=== PATIENT | female | born 1980 | race Hispanic/Latino ===

== ENCOUNTER 2020-12-13 18:45 | Inpatient (IN) | payer BC, OTHER ==
[~2020-12-13] VITALS: Ht 142.2 cm; Wt 48.5 kg
[2020-12-13] MEDS ORDERED: ACETAMINOPHEN 325 MG TAB PO ONE (19:45)
[2020-12-13] MEDS ORDERED: CEFTRIAXONE 2 GM in SODIUM CHLORIDE 0.9% 100 ML IV ONE (19:45)
[2020-12-13 19:59] LABS: BASOPHILS % 0.2 % (0.0-1.0); HEMATOCRIT 38.5 % (34.2-44.1); HEMOGLOBIN 13.1 g/dL (12.0-16.0); LYMPHOCYTES # (AUTO) 0.6 (1.0-3.2); MEAN CORPUSCULAR HEMOGLOBIN 30.3 pg (28-32); MEAN CORPUSCULAR VOLUME 88.9 fL (81-99); MONOCYTES # (AUTO) 1.2 (0.2-0.8); MONOCYTES % 7.9 % (4.4-11.3); NEUTROPHILS # (AUTO) 13.6 (2.1-6.9); NEUTROPHILS % 87.6 % (38.7-80.0); PLATELET COUNT 335 x10e3/uL (140-360); RED BLOOD COUNT 4.33 x10e6/uL (3.6-5.1); RED CELL DISTRIBUTION WIDTH 12.8 % (11.7-14.4)
[2020-12-13] MEDS ORDERED: SODIUM CHLORIDE 0.9% 1000ML 1,000 ML IV ONE (20:00)
[2020-12-13 20:14] LABS: ANION GAP 16.3 mmol/L (8-16); CALCIUM 9.4 mg/dL (8.4-10.2); CREATININE, SERUM 0.73 mg/dL (0.57-1.11); POTASSIUM 3.3 mmol/L (3.5-5.1)
[2020-12-13 20:30] LABS: CLARITY,URINE SL CLOUDY (CLEAR); COLOR,URINE BROWN (YELLOW)
[2020-12-13 20:31] LABS: KETONES,URINE TRACE (NEGATIVE); LEUKOCYTE ESTERASE ,URINE LARGE (NEGATIVE); NITRITE,URINE POSITIVE (NEGATIVE); PROTEIN,URINE DIPSTICK >=300 (NEGATIVE); URINE UROBILINOGEN 1 mg/dL (0.2 - 1)
[2020-12-13] MEDS ORDERED: ONDANSETRON HCL INJ 2MG/ML 2ML 2 MG/ML VIAL IV STA (20:31)
[2020-12-13 20:39] LABS: BACTERIA,URINE MODERATE /HPF; WBC,URINE (MAN) >50 /HPF (0-5)
[2020-12-13] MEDS ORDERED: IBUPROFEN 600 MG TAB PO STA (21:30)
[2020-12-13] MEDS ORDERED: IBUPROFEN 600 MG TAB ONE (21:38)
[2020-12-13 22:18] LABS: AMYLASE 82 U/L (25-125); LIPASE 41 U/L (8-78)
[2020-12-13] MEDS ORDERED: ONDANSETRON HCL INJ 2MG/ML 2ML 2 MG/ML VIAL IV PRN (22:45)
[2020-12-13] MEDS ORDERED: IBUPROFEN 600 MG TAB PO PRN (22:45)
[2020-12-13] MEDS ORDERED: SODIUM CHLORIDE 0.9% INJ 10 ML VIAL INJ PRN (22:45)
[2020-12-13] MEDS: KCL 20MEQ/.9 SOD CHL 1,000 ML IV SCH (22:56)
[2020-12-13] MEDS ORDERED: IBUPROFEN 200 MG TAB PO STA (23:06)
[2020-12-13] MEDS ORDERED: IBUPROFEN 200 MG TAB ONE (23:15)
[2020-12-14] MEDS ORDERED: IBUPROFEN 800 MG/200 ML IV PRN (01:15)
[2020-12-14] MEDS ORDERED: IBUPROFEN 800MG/ 200ML 200 ML IV ONE (01:29)
[2020-12-14 01:38] LABS: AMPHETAMINES SCREEN,URINE NEGATIVE (NEGATIVE); BENZODIAZEPINES SCREEN,URINE NEGATIVE (NEGATIVE); PHENCYCLIDINE SCREEN,URINE NEGATIVE (NEGATIVE)
[2020-12-14 06:14] LABS: BASOPHILS % 0.3 % (0.0-1.0); EOSINOPHILS % 0.1 % (0.0-6.0); HEMATOCRIT 33.6 % (34.2-44.1); HEMOGLOBIN 11.1 g/dL (12.0-16.0); LYMPHOCYTES # (AUTO) 0.8 (1.0-3.2); LYMPHOCYTES % 7.8 % (18.0-39.1); MEAN CORPUSCULAR HEMOGLOBIN 30.8 pg (28-32); MEAN CORPUSCULAR VOLUME 93.3 fL (81-99); MONOCYTES # (AUTO) 1.4 (0.2-0.8); MONOCYTES % 13.4 % (4.4-11.3); NEUTROPHILS # (AUTO) 8.3 (2.1-6.9); NEUTROPHILS % 77.9 % (38.7-80.0); PLATELET COUNT 265 x10e3/uL (140-360)
[2020-12-14] MEDS: KCL 20MEQ/.9 SOD CHL 1,000 ML IV SCH ×4 (06:18→22:45)
[2020-12-14 06:27] LABS: ANION GAP 13.1 mmol/L (8-16); CALCIUM 8.1 mg/dL (8.4-10.2); CREATININE, SERUM 0.57 mg/dL (0.57-1.11); POTASSIUM 3.1 mmol/L (3.5-5.1)
[2020-12-14] MEDS ORDERED: CEFTRIAXONE 2 GM in SODIUM CHLORIDE 0.9% 100 ML IV SCH (09:00)
[2020-12-14] MEDS ORDERED: LOSARTAN POTASS25 MG PO (12:45)
[2020-12-14] MEDS ORDERED: NEURONTIN300 MG PO (12:45)
[2020-12-14 13:37] VITALS: BP 159/98
[2020-12-14] MEDS ORDERED: POTASSIUM CHLORIDE 20 MEQ TAB CR PO NR (13:45)
[2020-12-14 14:00] VITALS: BP 161/92
[2020-12-14] MEDS ORDERED: HYDRALAZINE HCL 20 MG/ML VIAL IV PRN (14:00)
[2020-12-14 14:46] VITALS: BP 161/92
[2020-12-14 15:51] VITALS: BP 171/107
[2020-12-14] MEDS ORDERED: ENOXAPARIN SOD INJ 40 MG/0.4 ML SYR SC SCH (17:00)
[2020-12-14] MEDS ORDERED: Vancomycin IV 1 GM in SODIUM CHLORIDE 0.9% 250ML 250 ML IV ONE (18:00)
[2020-12-14] MEDS: METOPROLOL TARTRATE INJ 1 MG/ML VIAL IV PRN ×2 (18:14→22:20)
[2020-12-14] MEDS: LOSARTAN POTASSIUM 25 MG TAB PO SCH (18:15)
[2020-12-14] MEDS: ACETAMINOPHEN 325 MG TAB PO PRN ×3 (18:16→22:18)
[2020-12-14 20:37] VITALS: BP 103/92
[2020-12-14] MEDS: GABAPENTIN 300 MG CAP PO SCH (21:03)
[2020-12-14] MEDS: CEFEPIME 1 GM in SODIUM CHLORIDE 0.9% 50ML 50 ML IV SCH (21:03)
[2020-12-15] VITALS (7 sets, daily range): BP systolic 119–152; BP diastolic 84–97
[2020-12-15] MEDS: ACETAMINOPHEN 325 MG TAB PO PRN (03:48)
[2020-12-15] MEDS: CEFEPIME 1 GM in SODIUM CHLORIDE 0.9% 50ML 50 ML IV SCH (05:13)
[2020-12-15] MEDS: METOPROLOL TARTRATE INJ 1 MG/ML VIAL IV PRN (05:13)
[2020-12-15 06:39] LABS: BASOPHILS % 0.1 % (0.0-1.0); EOSINOPHILS % 0.2 % (0.0-6.0); HEMATOCRIT 32.8 % (34.2-44.1); HEMOGLOBIN 10.9 g/dL (12.0-16.0); LYMPHOCYTES # (AUTO) 0.9 (1.0-3.2); LYMPHOCYTES % 8.4 % (18.0-39.1); MEAN CORPUSCULAR HEMOGLOBIN 30.3 pg (28-32); MEAN CORPUSCULAR HGB CONC 33.2 g/dL (31-35); MEAN CORPUSCULAR VOLUME 91.1 fL (81-99); MONOCYTES # (AUTO) 1.3 (0.2-0.8); MONOCYTES % 12.8 % (4.4-11.3); NEUTROPHILS # (AUTO) 8.1 (2.1-6.9); NEUTROPHILS % 78.1 % (38.7-80.0); PLATELET COUNT 280 x10e3/uL (140-360); RED CELL DISTRIBUTION WIDTH 13.2 % (11.7-14.4)
[2020-12-15 07:21] LABS: ANION GAP 11.4 mmol/L (8-16); CALCIUM 8.5 mg/dL (8.4-10.2); CREATININE, SERUM 0.56 mg/dL (0.57-1.11); POTASSIUM 3.4 mmol/L (3.5-5.1)
[2020-12-15] MEDS: GABAPENTIN 300 MG CAP PO SCH ×3 (09:00→21:42)
[2020-12-15] MEDS: LOSARTAN POTASSIUM 25 MG TAB PO SCH (09:00)
[2020-12-15] MEDS ORDERED: POTASSIUM CHLORIDE 20 MEQ TAB CR PO NR (09:28)
[2020-12-15] MEDS ORDERED: SODIUM CHLORIDE 0.9% 50ML 50 ML ONE (10:35)
[2020-12-15] MEDS: MEROPENEM 1 GM in SODIUM CHLORIDE 0.9% 100 ML IV SCH ×2 (13:44→22:00)
[2020-12-16] VITALS (8 sets, daily range): BP systolic 135–145; BP diastolic 77–97
[2020-12-16] MEDS: MEROPENEM 1 GM in SODIUM CHLORIDE 0.9% 100 ML IV SCH ×2 (05:22→15:18)
[2020-12-16 06:09] LABS: BASOPHILS % 0.4 % (0.0-1.0); EOSINOPHILS # (AUTO) 0.1 (0.0-0.4); EOSINOPHILS % 1.4 % (0.0-6.0); HEMATOCRIT 32.5 % (34.2-44.1); LYMPHOCYTES # (AUTO) 1.5 (1.0-3.2); LYMPHOCYTES % 21.5 % (18.0-39.1); MEAN CORPUSCULAR HEMOGLOBIN 30.8 pg (28-32); MEAN CORPUSCULAR HGB CONC 33.8 g/dL (31-35); MONOCYTES # (AUTO) 0.9 (0.2-0.8); MONOCYTES % 12.4 % (4.4-11.3); NEUTROPHILS # (AUTO) 4.5 (2.1-6.9); NEUTROPHILS % 63.7 % (38.7-80.0); PLATELET COUNT 290 x10e3/uL (140-360); RED BLOOD COUNT 3.57 x10e6/uL (3.6-5.1); RED CELL DISTRIBUTION WIDTH 13.2 % (11.7-14.4)
[2020-12-16 07:01] LABS: ALBUMIN/GLOBULIN RATIO 0.8 (0.8-2.0); ANION GAP 14.3 mmol/L (8-16); CALCIUM 8.8 mg/dL (8.4-10.2); CREATININE, SERUM 0.52 mg/dL (0.57-1.11); MAGNESIUM 1.8 MG/DL (1.3-2.1); PHOSPHORUS 2.5 MG/DL (2.3-4.7); POTASSIUM 3.3 mmol/L (3.5-5.1)
[2020-12-16] MEDS ORDERED: POTASSIUM CHLORIDE 20 MEQ TAB CR PO ONE (08:15)
[2020-12-16] MEDS: GABAPENTIN 300 MG CAP PO SCH ×2 (08:44→15:18)
[2020-12-16] MEDS: LOSARTAN POTASSIUM 25 MG TAB PO SCH (08:44)
[2020-12-16] MEDS: ACETAMINOPHEN 325 MG TAB PO PRN (09:30)
[2020-12-16] MEDS ORDERED: SODIUM CHLORIDE 0.9% 250ML 250 ML ONE (15:07)
[2020-12-16] MEDS ORDERED: MEROPENEM-1 GM/50 ML IV (17:52)
[2020-12-16] MEDS ORDERED: ZOFRAN4 MG PO (17:52)
[2020-12-16] MEDS ORDERED: ACETAMINOPHEN325 M1 PO (17:52)
[2020-12-16] MEDS ORDERED: ONDANSETRON HCL 4 MG ORAL DISINTEGRATING TAB PO PRN (19:00)
[2021-01-16] MEDS ORDERED: IBUPROFEN200 MG PO (12:28)
== END 2020-12-16 19:57 | disposition home or self-care (01) | DRG 698 ==
LOC: ER 20:03 → ERHOLD 22:48 → MED/SURG3 12-14 13:19
PROVIDERS: ADMIT Internal Medicine; ATTEND Internal Medicine
PROC: 02HV33Z Insertion of Infusion Device into Superior Vena Cava, Percutaneous Approach (ICD-10-PCS; principal; 2020-12-13)
DX: T83.592A Infection and inflammatory reaction due to indwelling ureteral stent, initial encounter (principal); A41.89 Other specified sepsis; E87.1 Hypo-osmolality and hyponatremia; Z16.12 Extended spectrum beta lactamase (ESBL) resistance; N12 Tubulo-interstitial nephritis, not specified as acute or chronic; Q96.9 Turner's syndrome, unspecified; N20.0 Calculus of kidney; Z96.0 Presence of urogenital implants; E87.6 Hypokalemia; E27.9 Disorder of adrenal gland, unspecified; R31.9 Hematuria, unspecified; D64.9 Anemia, unspecified; Z20.822 Contact with and (suspected) exposure to COVID-19; B96.1 Klebsiella pneumoniae [K. pneumoniae] as the cause of diseases classified elsewhere
CPT/HCPCS: 36415; 36569; 71045; 74176; 80053; 80307; 81001; 81025; 82150; 83605; 83690; 83735; 84100; 85025; 87040; 87086; 87186; 99284; J0360; J0692; J0696; J2185; J2405; J3370; J7030; J7050; U0002

== ENCOUNTER → 2021-01-20 | Day surgery (SDC) | payer OTHER ==
[2021-01-17 11:59] LABS: BASOPHILS % 0.4 % (0.0-1.0); EOSINOPHILS # (AUTO) 0.2 (0.0-0.4); EOSINOPHILS % 1.6 % (0.0-6.0); HEMATOCRIT 37.1 % (34.2-44.1); HEMOGLOBIN 12.6 g/dL (12.0-16.0); LYMPHOCYTES # (AUTO) 1.5 (1.0-3.2); MEAN CORPUSCULAR HEMOGLOBIN 30.2 pg (28-32); MONOCYTES # (AUTO) 0.9 (0.2-0.8); MONOCYTES % 8.8 % (4.4-11.3); NEUTROPHILS # (AUTO) 7.8 (2.1-6.9); NEUTROPHILS % 74.7 % (38.7-80.0); PLATELET COUNT 398 x10e3/uL (140-360); RED BLOOD COUNT 4.17 x10e6/uL (3.6-5.1)
[2021-01-17 12:23] LABS: ANION GAP 10.3 mmol/L (8-16); CALCIUM 9.5 mg/dL (8.4-10.2); CREATININE, SERUM 0.77 mg/dL (0.57-1.11); POTASSIUM 3.3 mmol/L (3.5-5.1)
[~2021-01-20] MED LIST: ACETAMINOPHEN325 M1 PO; BELLADONNA/OPIUM 30 MG SUPP RC ONE; CEFTRIAXONE 1 GM VIAL ONE; FENTANYL CITRATE/PF 100MCG/2 ML INJ ONE; GENTAMICIN 80MG/NS 100 ML 200 ML IV ONE; IBUPROFEN200 MG PO; IOPAMIDOL 300MG/ML 50ML INFUS..BTL IV ONE; LOSARTAN POTASS25 MG PO; MEPERIDINE HCL INJ 25 MG/ML VIAL ONE; MEROPENEM-1 GM/50 ML IV; METOPROLOL TARTRATE INJ 1 MG/ML VIAL ONE; NEURONTIN300 MG PO; PIPER-TAZ 3.375 GM / NS 50ML ONE; SODIUM CHLORIDE 0.9% 50ML 50 ML ONE; ZOFRAN4 MG PO
[2021-01-20 09:45] VITALS: BP 125/78
== END | disposition home or self-care (01) ==
LOC: OR 05:38
PROVIDERS: ATTEND Urology
DX: N20.0 Calculus of kidney (principal); Z46.6 Encounter for fitting and adjustment of urinary device; N81.6 Rectocele; N28.89 Other specified disorders of kidney and ureter; I10 Essential (primary) hypertension; R00.0 Tachycardia, unspecified; G90.50 Complex regional pain syndrome I, unspecified; Q96.9 Turner's syndrome, unspecified; Z01.810 Encounter for preprocedural cardiovascular examination; Z01.812 Encounter for preprocedural laboratory examination; Z20.822 Contact with and (suspected) exposure to COVID-19
CPT/HCPCS: 36415; 74018; 74420; 80048; 83970; 84550; 85025; 87086; 87186; 88300; 93005; C1758; C1769; J0696; J1580; J2175; J2543; J3010; U0002